=== PATIENT | male | born 1960 | race African-American/Black ===

== ENCOUNTER 2017-01-02 01:36 | Inpatient (IN) ==
[2017-01-02] MEDS ORDERED: Aspirin 81 MG TAB.CHEW PO ONE (01:49)
[2017-01-02 02:49] LABS: Basophils # 0.1 K/mcL (0.0-0.2); Basophils % 0.4 %; Eosinophils % 8.5 %; Hematocrit 40.1 % (37.5-50.1); Hemoglobin 12.5 g/dL (12.9-16.9); Immature Granulocytes % 0.3 % (0-4); Lymphocytes % 8.1 %; Mean Corpuscular HGB Conc 31.2 g/dL (31.6-35.5); Mean Corpuscular Hemoglobin 26.3 pg (28.0-33.3); Mean Corpuscular Volume 84.2 fL (83.0-100.0); Mean Platelet Volume 11.2 fL (9.4-12.4); Monocytes # 0.5 K/mcL (0.0-1.3); Monocytes % 4.5 %; Neutrophils # 9.2 K/mcL (1.6-8.9); Platelet Count 170 K/mcL (140-400); Red Blood Count 4.76 M/mcL (4.19-5.50); Red Cell Distribution Width 15.2 % (11.5-14.5); Segmented Neutrophils % 78.2 %
[2017-01-02 02:55] LABS: Prothrombin Time 10.8 Seconds (9.4-12.1)
--- NOTE | 2017-01-02 02:56 | Emergency Department Note ---
Disposition Clinical Impression: Chest pain Qualifiers: Chest pain type: precordial pain Qualified Code(s): R07.2 - Precordial pain Alcohol withdrawal Qualifiers: Complication of substance-induced condition: uncomplicated Qualified Code(s): F10.230 - Alcohol dependence with withdrawal, uncomplicated Pulmonary edema Qualifiers: Chronicity: acute Qualified Code(s): J81.0 - Acute pulmonary edema Disposition: Admitted As Inpatient Condition: Fair [facility]Primary Care Provider[facility] - Forms: ED Satisfaction Letter Chest Pain HPI - General Chief Complaint: ED Chest Pain Stated Complaint: CP Time Seen by Provider: 01/02/17 01:41 Source: patient Mode of arrival: private vehicle Limitations: no limitations Vital Signs Reviewed: Yes Nursing Notes Reviewed: Yes - History of Present Illness Pt complaint: chest pain Onset (ago): Just ROLL UP [employer] Duration: now resolved Onset: during rest Pain Location: substernal Severity: unable, now resolved Severity scale (1-10): 0 Quality: sharp Pain Radiation: none Improves with: nitroglycerin, medication-other (patient received at the) Worsens with: exertion Context: other (Hx of CAD - 2 stents) Associated symptoms: Denies: nausea, vomiting, diaphoresis, dyspnea, sense of impending doom, syncope, palpitations, fever, cough, leg swelling Treatments prior to arrival chest pain: none - Related Data Home Medications Medication Instructions Recorded Confirmed Albuterol Sulfate [Albuterol 2 puff IH QID PRN 07/08/15 07/08/15 Inhaler] Baclofen [Lioresal] 5 mg PO TID 07/08/15 07/08/15 Clopidogrel [Plavix] 75 mg PO DAILY 07/08/15 07/08/15 Divalproex (24 HR) [Depakote ER 1,500 mg PO HS 07/08/15 07/08/15 (24 HR)] Divalproex (24 HR) [Depakote ER 500 mg PO QA 07/08/15 07/08/15 (24 HR)] Gabapentin [Neurontin] 900 mg PO TID 07/08/15 07/08/15 Hydrophilic Cream [Triad] 170 gm TP DAILY 07/08/15 07/08/15 Insulin Glargine,Hum.rec.anlog 25 unit SQ 07/08/15 07/08/15 [Lantus Solostar] Lurasidone [Latuda] 20 mg PO QAM 07/08/15 07/08/15 Lurasidone [Latuda] 80 mg PO HS 07/08/15 07/08/15 Metoprolol [Lopressor] 50 mg PO BID 07/08/15 07/08/15 Mirtazapine [Remeron] 45 mg PO HS 07/08/15 07/08/15 Sildenafil Citrate [Viagra] 100 mg PO DAILY PRN 07/08/15 07/08/15 Simethicone [Gas-X] 160 mg PO BID PRN 07/08/15 07/08/15 hydrOXYzine HCl [Hydroxyzine HCl] 50 mg PO TID 07/08/15 07/08/15 traMADol [Ultram] 100 mg PO TID PRN 07/08/15 07/08/15 Previous Rx's Medication Instructions Recorded hydrALAZINE [HydrALAZINE] 50 mg PO Q8HR #0 07/09/15 Allergies Allergy/AdvReac Type Severity Reaction Status Date / Time Penicillins Allergy Swelling Verified 01/02/17 01:42 of Lip/Tongue/Throat All systems ED: reviewed and negative except as stated. Constitutional: Denies: fever, chills, weakness Eyes: Denies: eye pain, eye discharge, vision change ENT ED: Denies: ear pain, throat pain, congestion, dysphagia Cardiovascular: Denies: chest pain, palpitations, dyspnea on exertion, orthopnea Respiratory: Denies: cough, dyspnea, wheezes Gastrointestinal: Denies: abdominal pain, nausea, vomiting Genitourinary: Denies: urgency, dysuria, frequency Musculoskeletal: Denies: back pain, neck pain, joint swelling, arthralgia Integumentary: Denies: rash, lesions, nipple discharge Neurological: Denies: weakness, numbness, paresthesias Psychiatric: Denies: anxiety, depression Hematological/Lymphatic: Denies: easy bleeding, easy bruising Chest Pain PMH - Past Medical History Medical history: Reports: COPD, coronary artery disease, diabetes, hypertension , myocardial infarction Surgical history: Reports: other Psychiatric history: Reports: anxiety, depression, PTSD, other - Social History Smoking Status: Current some day smoker Alcohol use: Reports: occasionally, recent Drug use: Reports: marijuana Physical Exam - General Limitations: no limitations General appearance: alert, in no apparent distress - Head Head exam: atraumatic, normocephalic, normal inspection - Eye Eye exam: Present: normal appearance, PERRL, EOMI. Absent: scleral icterus, conjunctival injection, periorbital swelling - ENT ENT exam: normal exam, normal oropharynx, mucous membranes moist - Neck Neck exam: Present: normal inspection, full ROM, trachea midline - Chest Chest inspection: Present: normal inspection, symmetric chest wall rise - Respiratory Respiratory exam: Present: normal lung sounds bilaterally. Absent: respiratory distress, wheezes, stridor - Cardiovascular Cardiovascular exam: Present: regular rate, normal rhythm, normal heart sounds. Absent: bradycardia, tachycardia, irregular rhythm, systolic murmur, diastolic murmur - Abdominal Exam Abdominal exam: Present: soft, Non-Tender. Absent: distention, guarding, mass - Extremities Exam Extremities exam: Present: normal inspection. Absent: pedal edema - Back Exam Back exam: Present: normal inspection, full ROM. Absent: tenderness - Neurological Exam Neurological exam: Present: alert, oriented X3, CN II-XII intact, normal gait - Psychiatric Psychiatric exam: Present: normal affect, normal mood, depressed - Skin Skin exam: Present: warm, dry, intact, normal color Course Course Narrative: Patient was sent here from the [place] for evaluation of chest pain. He was seen here two days ago for medical clearance so that he could be admitted to the [facility] for psychiatric treatment. He had no chest pain at that time. He was in the psychiatric unit at the [place] since then and had no complaints until today when he had a sudden onset of chest pressure, hypertension and shortness of breath. He does have a history of coronary artery disease and alcoholism. He is currently going through withdrawal. He has had no alcohol for two days. He was given Ativan 1 AM while in the psych unit along with one nitroglycerin 0.1 of clonidine and some oxygen and albuterol neb. He felt better and wanted to stay at the [place] psych facility, however, the doctor felt that he should be sent here for further evaluation given his history of coronary artery disease and two previous stents. Upon arrival, patient was taken to bed 15. He has no complaints. He is a and O 3 with normal oxygen saturation. His EKG shows sinus rhythm with no ST elevation or depression. It is unchanged compared to previous. We will check labs and x-ray, then reevaluate. Patient is still pain free. Troponin is normal. BNP is mildly elevated. Chest x-ray shows pulmonary edema. Hospitalist was contacted for admission. I spoke with Dr Conn.. He will accept patient for admission. Vital Signs Temperature 98.1 F 01/02/17 01:46 Pulse Rate 76 01/02/17 01:46 Respiratory Rate 12 01/02/17 01:46 Blood Pressure 168/83 01/02/17 01:46 O2 Sat by Pulse Oximetry 95 01/02/17 01:46 Temperature 98.1 F 01/02/17 01:46 Pulse Rate 78 01/02/17 02:30 Respiratory Rate 18 01/02/17 02:30 Blood Pressure 173/87 01/02/17 02:30 O2 Sat by Pulse Oximetry 99 01/02/17 02:30 Oxygen Delivery Oxygen Delivery Room Air Chest Pain - Medical Records Medical records reviewed: Yes I reviewed the patient's medical records. - Lab Data Lab results reviewed: Yes I reviewed the patient's lab results. Lab results narrative: Laboratory Last Values WBC 11.7 K/mcL (4.3-11.1) H 01/02/17 02:42 RBC 4.76 M/mcL (4.19-5.50) 01/02/17 02:42 Hgb 12.5 g/dL (12.9-16.9) L 01/02/17 02:42 Hct 40.1 % (37.5-50.1) 01/02/17 02:42 MCV 84.2 fL (83.0-100.0) 01/02/17 02:42 MCH 26.3 pg (28.0-33.3) L 01/02/17 02:42 MCHC 31.2 g/dL (31.6-35.5) L 01/02/17 02:42 RDW 15.2 % (11.5-14.5) H 01/02/17 02:42 Plt Count 170 K/mcL (140-400) 01/02/17 02:42 MPV 11.2 fL (9.4-12.4) 01/02/17 02:42 Immature Gran % 0.3 % (0-4) 01/02/17 02:42 Seg Neutrophils % 78.2 % 01/02/17 02:42 Lymphocytes % 8.1 % 01/02/17 02:42 Monocytes % 4.5 % 01/02/17 02:42 Eosinophils % 8.5 % 01/02/17 02:42 Basophils % 0.4 % 01/02/17 02:42 Neutrophils # 9.2 K/mcL (1.6-8.9) H 01/02/17 02:42 Lymphocytes # 1.0 K/mcL (0.6-4.6) 01/02/17 02:42 Monocytes # 0.5 K/mcL (0.0-1.3) 01/02/17 02:42 Eosinophils # 1.0 K/mcL (0.0-0.6) H 01/02/17 02:42 Basophils # 0.1 K/mcL (0.0-0.2) 01/02/17 02:42 PT 10.8 Seconds (9.4-12.1) 01/02/17 02:42 INR 1.0 01/02/17 02:42 APTT 29.6 Seconds (26.0-36.0) 01/02/17 02:42 Sodium 136 mEq/L (136-145) 01/02/17 02:42 Potassium 4.8 mEq/L (3.5-4.5) H D 01/02/17 02:42 Chloride 108 mEq/L (98-109) 01/02/17 02:42 Carbon Dioxide 22 mEq/L (19-29) 01/02/17 02:42 BUN 22 mg/dL (8-26) 01/02/17 02:42 Creatinine 1.41 mg/dL (0.72-1.25) H 01/02/17 02:42 Est GFR ( Amer) > 60 (> 60) 01/02/17 02:42 Est GFR (Non-Af Amer) 52 (> 60) L 01/02/17 02:42 BUN/Creatinine Ratio 16 (6-26) 01/02/17 02:42 Glucose 242 mg/dL (70-99) H 01/02/17 02:42 Calculated Osmolality 293 (280-300) 01/02/17 02:42 Calcium 8.9 mg/dL (8.6-10.8) 01/02/17 02:42 Total Bilirubin < 0.3 mg/dL (0.2-1.2) 01/02/17 02:42 Direct Bilirubin 0.1 mg/dL (0.0-0.5) 01/02/17 02:42 Indirect Bilirubin 0.2 mg/dL (0.0-1.2) 01/02/17 02:42 AST 25 Units/L (5-34) 01/02/17 02:42 ALT 31 Units/L (0-55) 01/02/17 02:42 Alkaline Phosphatase 120 Units/L (38-126) 01/02/17 02:42 Troponin I 0.03 ng/mL (0-0.03) 01/02/17 02:42 B-Natriuretic Peptide 517 pg/mL (0-100) H 01/02/17 02:42 Serum Total Protein 5.4 g/dL (6.0-8.3) L 01/02/17 02:42 Albumin 3.0 g/dL (3.5-5.0) L 01/02/17 02:42 Globulin 2.4 g/dL (2.4-3.5) 01/02/17 02:42 Albumin/Globulin Ratio 1.3 (1.1-2.2) 01/02/17 02:42 Lipase 25 Units/L (8-78) 01/02/17 02:42 - Radiology Data Radiology results reviewed: Yes I reviewed the patient's radiology results. Chest X-Ray 01/02/17 01:49 IMPRESSION: 1. Stable cardiomegaly with findings most consistent with moderate diffuse pulmonary edema. 2. Superimposed more confluent left basilar opacity favored to reflect atelectasis/edema. Superimposed infectious infiltrate could be considered in the correct clinical setting. D/ / Bean Landon MD / Bean Landon MD Interpreting Provider: Bean Landon MD - EKG Data EKG attestation: Yes I reviewed and interpreted this EKG. EKG shows normal: sinus rhythm Rate: normal Rhythm: NSR [place]/QRS: normal When compared to previous EKG there are: no significant changes Interpretation: no acute changes
[2017-01-02 02:58] LABS: Activated Partial Thrombo Time 29.6 Seconds (26.0-36.0)
[2017-01-02 03:03] LABS: BUN/Creatinine Ratio 16 (6-26); Blood Urea Nitrogen 22 mg/dL (8-26); Calcium 8.9 mg/dL (8.6-10.8); Carbon Dioxide 22 mEq/L (19-29); Chloride 108 mEq/L (98-109); Glucose 242 mg/dL (70-99); Osmolality,Calculated 293 (280-300); Potassium 4.8 mEq/L (3.5-4.5); Sodium 136 mEq/L (136-145); eGFR For African Americans > 60 (> 60); eGFR For Non-African Americans 52 (> 60)
[2017-01-02 03:04] LABS: Alanine Aminotransferase 31 Units/L (0-55); Albumin/Globulin Ratio 1.3 (1.1-2.2); Alkaline Phosphatase 120 Units/L (38-126); Aspartate Amino Transferase 25 Units/L (5-34); Bilirubin,Direct 0.1 mg/dL (0.0-0.5); Bilirubin,Indirect 0.2 mg/dL (0.0-1.2); Bilirubin,Total < 0.3 mg/dL (0.2-1.2); Globulin 2.4 g/dL (2.4-3.5); Total Protein 5.4 g/dL (6.0-8.3)
--- NOTE | 2017-01-02 04:09 | Emergency Department Note ---
START Narrative - START START: I have personally performed a face to face evaluation on this patient. I have reviewed and agree with the care plan. History and Exam by me shows: Patient to ED from [place] psych inpatient for chest pain. His pain is resolved by the time he arrives here. History coronary disease. Patient currently therefore alcohol withdrawal. Exam shows an laying in bed in no acute distress. Heart regular. Plan. Cardiac workup. Likely admission. He is pain -free on his arrival here.
[2017-01-02] MEDS ORDERED: Furosemide 40 MG/4 ML VIAL IVP ONE (04:19)
[2017-01-02] MEDS ORDERED: Furosemide 20 MG/2 ML VIAL IVP ONE (04:21)
[2017-01-02] MEDS ORDERED: Naloxone 0.4 MG/ML INJ IVP PRN (06:33)
[2017-01-02] MEDS ORDERED: *HR* HYDROcodone/Acet 5/325 mg TABLET PO PRN (06:33)
[2017-01-02] MEDS ORDERED: Acetaminophen 325 MG TABLET PO PRN (06:33)
--- NOTE | 2017-01-02 06:47 | Internal Med History&Physical ---
Date of Encounter: 01/02/17 Time of Encounter: 06:45 Assessment and Plan (1) Essential hypertension Current visit: Yes Status: Acute Continue oral antihypertensive medications per outpatient regimen. (2) Polysubstance abuse Current visit: No Status: Acute (3) Chest pain Current visit: Yes Status: Acute Patient has a history of CAD, is recurrent pain is concerning for ACS. We will place the patient in observation, monitor on telemetry, trend troponin. Obtain stress test and echocardiogram. Qualifiers: Chest pain type: precordial pain Qualified Code(s): R07.2 - Precordial pain (4) Alcohol withdrawal Current visit: Yes Status: Acute We will start alcohol withdrawal protocol. Qualifiers: Complication of substance-induced condition: uncomplicated Qualified Code(s ): F10.230 - Alcohol dependence with withdrawal, uncomplicated (5) Pulmonary edema Current visit: Yes Status: Acute Could probably secondary to hypertensive urgency Versus diastolic heart failure. BNP is elevated. Will obtain echocardiogram. We will treat with IV Lasix. Qualifiers: Chronicity: acute Qualified Code(s): J81.0 - Acute pulmonary edema Internal Medicine - H&P: HPI Chief complaint: Chest pain Admitted From: Emergency Dept Plans for Post Hospital Care: Transfer Psych Facility History of present illness: Mr. Macedo is a 56 year old male with past medical history significant for hypertension, diabetes and coronary artery disease who was sent from the [place] psychiatric unit for evaluation of chest pain. He developed sudden onset substernal pressure-like 8/10 in intensity chest pain earlier today. He received treatment with Ativan and clonidine and nitroglycerin and improved. He was sent to our emergency department for evaluation. Currently the patient is chest pain-free. A 10 point review of systems was negative. Past Med Surg Social Fam HX - Past Medical History Medical history: COPD, coronary artery disease, diabetes, hypertension, myocardial infarction Psychiatric history: anxiety, depression, PTSD, other - Past Surgical History Surgical History: other - Social History Smoking Status: Current some day smoker Smokeless Tobacco Status: No Alcohol use: occasionally, recent Drug use: marijuana - Family History Mother History Unknown: Yes Living Status: Still Living Hx Family Respiratory Disorders: Yes Hx Family Cancer: Yes Hx Family Endocrine Disorder: Yes Father History Unknown: Yes Living Status: Hx Family Endocrine Disorder: Yes (" of diabetes") Internal Medicine - H&P: Meds Albuterol Sulfate [Albuterol Inhaler] 2 puff IH QID PRN 07/08/15 [History] Baclofen [Lioresal] 5 mg PO TID 07/08/15 [History] Clopidogrel [Plavix] 75 mg PO DAILY 07/08/15 [History] Divalproex (24 HR) [Depakote ER (24 HR)] 1,500 mg PO HS 07/08/15 [History] Divalproex (24 HR) [Depakote ER (24 HR)] 500 mg PO QAM 07/08/15 [History] Gabapentin [Neurontin] 900 mg PO TID 07/08/15 [History] Hydrophilic Cream [Triad] 170 gm TP DAILY 07/08/15 [History] Insulin Glargine,Hum.rec.anlog [Lantus Solostar] 25 unit SQ HS 07/08/15 [History ] Lurasidone [Latuda] 20 mg PO QAM 07/08/15 [History] Lurasidone [Latuda] 80 mg PO HS 07/08/15 [History] Metoprolol [Lopressor] 50 mg PO BID 07/08/15 [History] Mirtazapine [Remeron] 45 mg PO HS 07/08/15 [History] Sildenafil Citrate [Viagra] 100 mg PO DAILY PRN 07/08/15 [History] Simethicone [Gas-X] 160 mg PO BID PRN 07/08/15 [History] hydrOXYzine HCl [Hydroxyzine HCl] 50 mg PO TID 07/08/15 [History] traMADol [Ultram] 100 mg PO TID PRN 07/08/15 [History] hydrALAZINE [HydrALAZINE] 50 mg PO Q8HR #0 07/09/15 [Rx] Allergies Penicillins Allergy (Verified 01/02/17 01:42) Swelling of Lip/Tongue/Throat All Systems PM: A 10-system review of systems was performed and is negative for pertinent findings except as documented above in the HPI. - Constitutional Vitals: Temp Pulse Resp BP Pulse Ox 97.6 F 64 16 162/83 100 01/02/17 05:25 01/02/17 05:25 01/02/17 05:25 01/02/17 05:25 01/02/17 05:25 General appearance: Present: A&O X 3 - Respiratory Respiratory exam: Present: CTAB. Absent: accessory muscle use, rales, rhonchi, wheezes - Cardiovascular Cardiovascular exam: Present: RRR, +S1, +S2. Absent: diastolic murmur, gallop, rubs, systolic murmur - GI/Abdominal GI/Abdominal exam: Present: normal bowel sounds, soft, no peritoneal signs. Absent: distended, tenderness - Extremities Exam Extremities exam: Present: warm, radial pulses palpable and symetrical. Absent : calf tenderness, cyanotic, pedal edema - Neurological Exam Neurological exam: Present: CN II-XII intact, oriented X3, no focal deficits. Absent: pronater drift, facial droop, speech deficit - Skin Skin exam: Present: dry, intact Internal Med - H&P Results - Labs CBC & Chem 7: 01/02/17 02:42 01/02/17 02:42 - EKG Data -: EKG Interpreted by Myself EKG shows normal: sinus rhythm, intervals, ST-T waves (T-wave inversion lateral leads) - EKG Data Prior EKG available for review: yes When compared to previous EKG: there is no significant change
[2017-01-02] MEDS ORDERED: *HR* LORazepam 2 MG/ML VIAL IVP PRN (06:54)
[2017-01-02] MEDS ORDERED: *HR* Dextrose 50 % in Water (Syg) 50 ML SYRINGE IVP PRN (06:55)
[2017-01-02] MEDS ORDERED: D5% in Water 1,000 ML IVC PRN (06:55)
[2017-01-02] MEDS ORDERED: Dextrose Gel 15 GM PO PRN ×2 (06:55)
[2017-01-02] MEDS: Insulin LISPRO 300 UNITS/3 ML VIAL SQ SCH ×4 (08:04→20:11)
[2017-01-02] MEDS ORDERED: Regadenoson 0.4 MG/5 ML SYRINGE IVP ONE (09:17)
--- NOTE | 2017-01-02 12:02 | Nuclear Medicine Stress Report ---
Regadenoson Nuclear Stress Name: Ramez Macedo Date of Study: 01/02/2017 Date: 1960 Ht: 70.0 in Medical Record#: [id number] Age: 56 Wt: 173.0 lb Gender: Male Order #: [id number] Location: [facility] Room: [facility] Supervising Provider: Silver Brown CNP Reading Physician: Felipe Terrell MD, [facility] Ordering Physician: Christal Johnson CNP Primary Care Physician: [facility] Stress Technologist: Xin Campos RRT Encoding Clerk: Gerardo Baron Indications: Shortness of breath Impression: Perfusion imaging was negative for ischemia or infarct. SDS - 0 Pharmacologic ECG was non diagnostic for ischemia. Patient had no chest pain with stress. No arrhythmias noted with stress. Gated EF = 47%, visually EF is normal The LV is not dilated. There is no evidence of TID. History: Hypertension History of Smoking Stress Test Summary: Stress Test Type: Pharmacologic Regadenoson 0.4mg/5ml given IV Baseline Information: Initial Heart Rate: 66 Blood Pressure: 140/80 Stress Information: Test Terminated Due to (primary): As per protocol Maximum Blood Pressure: 128/78 Maximum Heart Rate: 89 Percent Maximum Heart Rate Achieved: 54 Double Product: [id number] METS Reached: 1 Symptoms: No chest symptoms Nuclear Summary: SPECT myocardial perfusion imaging using Tc99m Sestamibi given intravenously was performed at rest and following cardiac stress testing. The resting images were obtained following initial dose of 10.0 mCi. Following stress an additional dose of 32.3 mCi was given at peak exercise or 30 seconds post regadenoson infusion. Medication Given: Time Medication Dose Units Route Findings: Stress Note * Resting ECG demonstrated normal sinus rhythm. * No baseline arrhythmias were noted. * Pharmacologic stress ECG is non diagnostic for ischemia due to failure to reach target heartrate. * No chest pain or arrhythmias during stress. Hemodynamic responses * The patient demonstrated a hypotensive blood pressure response. Study Quality * Study quality is average. Gated EF % * Gated EF = 47%. Left Ventricle * The left ventricle is not dilated. NORMALS * All other wall motion normal. * Normal segmental perfusion in stress. * Normal Segmental Perfusion in rest. Motion * Mildly decreased basal inferior wall thickening. * Mildly decreased basal anterior wall thickening. Updated by Felipe Terrell MD, FACC on 01/02/2017 11:53:05 AM electronically signed on 01/02/2017 11:56:08 AM with status of Final
[2017-01-02] MEDS: Vitamin B Complex/Vit C/Vit E 1 EACH TABLET PO SCH (12:06)
[2017-01-02] MEDS: Folic Acid 1 MG TABLET PO SCH (12:06)
[2017-01-02] MEDS: Furosemide 20 MG TABLET PO SCH (12:06)
[2017-01-02] MEDS: Thiamine (B-1) 100 MG TABLET PO SCH (12:06)
[2017-01-02] MEDS: hydrALAZINE 25 MG TABLET PO SCH ×3 (12:07→23:45)
--- NOTE | 2017-01-02 13:55 | Event Note ---
Date of Encounter: 01/02/17 Time of Encounter: 13:54 56 year old male with past medical history significant for hypertension, diabetes and coronary artery disease s/p PCI, who was sent from the [place] for evaluation of chest pain. He developed sudden onset substernal pressure-like 8/ 10 in intensity chest pain earlier today. He received treatment with Ativan and clonidine and nitroglycerin and improved. he is also a polysubstance abuser his work up has revealed negative stress test negative for perfusion defects but revealing EF 47% (new). ECHO showed no WMA Patient admits to using cocaine On eval, he reports he is contemplating leaving AMA and does not want further eval. Counselled to await Physical exam is unremarkable Continue current management SW consult for [facility] Patient cannot leave AMA , as he came in from a inpatient Psych unit and has to be cleared by [facility] to go back home
[2017-01-02] MEDS ORDERED: Thiamine (B-1) 100 MG, Folic Acid 1 MG, MVI, adult with vitamin K 10 ML in 0.9 % Sodi... IVPB SCH (18:00)
--- NOTE | 2017-01-02 19:03 | Electrocardiograph Report ---
[address] [place] [address] Test Date: 2017-01-02 Pat Name: Ramez Macedo Department: 103 Room: 3B Gender: M Registered Nurses: KAHTY : 1960 Requested By: Adelaida See Order Number: [id number] Reading MD: Felipe Terrell MD Measurements Intervals [place] Rate: 74 P: 42 [place]: 217 QRS: 26 QRSD: 80 T: 153 QT: 385 QTc: 412 Interpretive Statements SINUS RHYTHM WITH FIRST DEGREE AV BLOCK LATERAL ISCHEMIA Electronically Signed On 01-02-2017 19:01:56 EDT by Felipe Terrell MD
[2017-01-02] MEDS: Insulin DETEMIR 100 UNIT/ML X5UNITS SQ SCH (20:10)
[2017-01-03 06:36] LABS: Basophils % 0.3 %; Eosinophils # 0.5 K/mcL (0.0-0.6); Eosinophils % 5.1 %; Hematocrit 38.2 % (37.5-50.1); Hemoglobin 12.8 g/dL (12.9-16.9); Immature Granulocytes % 0.4 % (0-4); Lymphocytes # 1.5 K/mcL (0.6-4.6); Mean Corpuscular HGB Conc 33.5 g/dL (31.6-35.5); Mean Corpuscular Hemoglobin 26.8 pg (28.0-33.3); Mean Corpuscular Volume 79.9 fL (83.0-100.0); Mean Platelet Volume 11.8 fL (9.4-12.4); Monocytes # 0.6 K/mcL (0.0-1.3); Monocytes % 5.9 %; Neutrophils # 7.8 K/mcL (1.6-8.9); Platelet Count 182 K/mcL (140-400); Red Blood Count 4.78 M/mcL (4.19-5.50); Red Cell Distribution Width 15.1 % (11.5-14.5); Segmented Neutrophils % 74.3 %
[2017-01-03 06:45] LABS: BUN/Creatinine Ratio 15 (6-26); Blood Urea Nitrogen 19 mg/dL (8-26); Calcium 8.5 mg/dL (8.6-10.8); Carbon Dioxide 22 mEq/L (19-29); Chloride 108 mEq/L (98-109); Glucose 55 mg/dL (70-99); Magnesium 1.6 mg/dL (1.6-2.6); Osmolality,Calculated 286 (280-300); Potassium 3.9 mEq/L (3.5-4.5); Sodium 138 mEq/L (136-145); eGFR For African Americans > 60 (> 60); eGFR For Non-African Americans 58 (> 60)
[2017-01-03] MEDS ORDERED: Baclofen 10 MG TABLET PO PRN (07:31)
[2017-01-03 08:38] LABS: Amphetamine Screen,Urine Negative ng/mL (Cutoff=1000); Barbiturate Screen,Urine Negative ng/mL (Cutoff=200); Benzodiazepines Screen,Urine Negative ng/mL (Cutoff=200); Cannabinoid Screen,Urine Negative ng/mL (Cutoff = 50); Cocaine Screen,Urine Positive ng/mL (Cutoff= 300); Opiate Screen,Urine Negative ng/mL (Cutoff=300); Phencyclidine Screen,Urine Negative ng/mL (Cutoff=25)
[2017-01-03] MEDS ORDERED: NON-FORMULARY MEDICATION 1 EACH EACH (Gabapentin [Neurontin] 1,200 MG) PO SCH (09:00)
[2017-01-03] MEDS ORDERED: Lisinopril 20 MG TABLET PO SCH (09:00)
[2017-01-03] MEDS: Multivit/Ca/Min/Fe/FA 1 TAB TABLET PO SCH (09:14)
[2017-01-03] MEDS: Furosemide 20 MG TABLET PO SCH (09:14)
[2017-01-03] MEDS: hydrALAZINE 25 MG TABLET PO SCH ×3 (09:14→23:52)
[2017-01-03] MEDS: Thiamine (B-1) 100 MG TABLET PO SCH (09:14)
[2017-01-03] MEDS: Aspirin Enteric Coated 81 MG Tablet PO SCH (09:15)
[2017-01-03] MEDS: amLODIPine 5 MG TABLET PO SCH (09:15)
[2017-01-03] MEDS: Finasteride 5 MG TABLET PO SCH (09:15)
[2017-01-03] MEDS: Folic Acid 1 MG TABLET PO SCH (09:15)
[2017-01-03] MEDS: Vitamin B Complex/Vit C/Vit E 1 EACH TABLET PO SCH (09:15)
[2017-01-03] MEDS: hydroCHLOROthiazide 25 MG TABLET PO SCH (09:15)
[2017-01-03] MEDS: Insulin LISPRO 300 UNITS/3 ML VIAL SQ SCH ×4 (09:19→20:10)
--- NOTE | 2017-01-03 09:24 | Discharge Summary ---
Date of Encounter: 01/03/17 Time of Encounter: 09:24 - Discharge Medications Home Medications: Albuterol Sulfate [Albuterol Inhaler] 2 puff IH QID PRN 07/08/15 [History] Hydrophilic Cream [Triad] 170 gm TP DAILY 07/08/15 [History] Insulin Glargine,Hum.rec.anlog [Lantus Solostar] 34 unit SQ HS 07/08/15 [History ] Lurasidone [Latuda] 80 mg PO HS 07/08/15 [History] Metoprolol [Lopressor] 50 mg PO BID 07/08/15 [History] Sildenafil Citrate [Viagra] 100 mg PO DAILY PRN 07/08/15 [History] hydrALAZINE [HydrALAZINE] 50 mg PO Q8HR #0 07/09/15 [Rx] Amantadine [Symmetrel] 100 mg PO BID 01/02/17 [History] Amlodipine Besylate 10 mg PO DAILY 01/02/17 [History] Aspirin [Lo-Dose Aspirin EC] 81 mg PO DAILY 01/02/17 [History] Baclofen 20 mg PO TID PRN 01/02/17 [History] Finasteride [Proscar] 5 mg PO DAILY 01/02/17 [History] Gabapentin [Neurontin] 1,200 mg PO TID 01/02/17 [History] Lidocaine 4% CRM (LMX) [Lmx 4] 1 appl TP QID 01/02/17 [History] Lisinopril [Zestril] 20 mg PO DAILY 01/02/17 [History] Lurasidone [Latuda] 40 mg PO QAM 01/02/17 [History] Melatonin [Melatin] 9 mg PO HS 01/02/17 [History] Multivit-Min/FA/Lycopen/Lutein [Men 50 Plus Multivitamin Tab] 1 tab PO DAILY [History] Prazosin [Minipress] 3 mg PO HS 01/02/17 [History] Simvastatin [Zocor] 20 mg PO HS 01/02/17 [History] hydrALAZINE [HydrALAZINE] 25 mg PO Q8HR 01/02/17 [History] hydroCHLOROthiazide [Hydrochlorothiazide] 50 mg PO DAILY 01/02/17 [History] Allergies/Adverse Reactions: Allergies Penicillins Allergy (Verified 01/02/17 01:42) Swelling of Lip/Tongue/Throat Procedures/tests Complete & Pending: Procedures Performed prior 72 hours Category Date Time Status NM teena perf SPECT multi [NM] Routine Exams 01/02/17 07:38 Taken EV echocardiogram Routine Y 01/02/17 06:35 Completed SP pharm nuclear stress Routine Y 01/02/17 06:35 Completed Date of admission: 01/02/17 04:46 [facility] care physician: [facility] Consults: 01/02/17 06:54 Consult to [facility] [CONS] Routine Reason for SW Consult: [facility] 01/03/17 07:34 Consult to [facility] [CONS] Routine Reason for SW Consult: [facility] to [facility] - Patient Status Condition: Fair - Discharge Instructions Follow Up With: [facility] [Primary Care Provider[facility] - Hospital course: Mr. Macedo is a 56 year old male - Time Spent with Patient Total time spent providing and/or coordinating discharge services: - Constitutional Vitals: Temp Pulse Resp BP Pulse Ox 98.1 F 73 18 170/83 98 01/03/17 07:25 01/03/17 07:25 01/03/17 07:25 01/03/17 07:25 01/03/17 07:25 General appearance: Present: A&O X 3, pleasant, no acute distress - Head Head exam: Present: atraumatic, normocephalic - Eye Eye exam: Present: PERRL, conjuntiva pink, sclera anicteric Pupils: Present: PERRL - Neck Neck exam general surgery: Present: supple, trachea midline. Absent: lymphadenopathy - Respiratory Respiratory exam: Present: CTAB. Absent: accessory muscle use, rales, rhonchi, wheezes - Cardiovascular Cardiovascular exam: Present: RRR, +S1, +S2. Absent: diastolic murmur, gallop, rubs, systolic murmur - GI/Abdominal GI/Abdominal exam: Present: normal bowel sounds, soft, no peritoneal signs. Absent: distended, tenderness - Extremities Exam Extremities exam: Present: warm, radial pulses palpable and symetrical. Absent : calf tenderness, cyanotic, pedal edema - Neurological Exam Neurological exam: Present: alert, CN II-XII intact, oriented X3, no focal deficits. Absent: pronater drift, facial droop, speech deficit - Skin Skin exam: Present: dry, intact
[2017-01-03] MEDS ORDERED: Lisinopril 20 MG TABLET PO ONE (15:18)
--- NOTE | 2017-01-03 15:22 | Internal Med Progress Note ---
Date of Encounter: 01/03/17 Time of Encounter: 09:00 - Assessment and plan (1) CHF (congestive heart failure) Current Visit: Yes Status: Chronic Assessment and plan: As in Pulmonary edema ECHO shows LVEF 55-60%, diastolic dysfunction, small pericardial effusion, no WMA Stress test shows no perfusion defects and estimates EF to be 47% Continue current management Qualifiers: Congestive heart failure type: diastolic Congestive heart failure chronicity: acute on chronic Qualified Code(s): I50.33 - Acute on chronic diastolic (congestive) heart failure (2) Essential hypertension Current Visit: Yes Status: Chronic Assessment and plan: Uncontrolled Increase Norvasc, Hydralazine, Lsix. Continue HCTZ (3) Pulmonary edema Current Visit: Yes Status: Acute Assessment and plan: Continue lasix, increase to 40mg po daily Continue to monitor I/Os Possibly secondary to cocaine use CXR showed moderate diffuse pulmonary edema Patient is hemodynamically stable Monitor I/O Daily weight checks Monitor Chem Qualifiers: Chronicity: acute Qualified Code(s): J81.0 - Acute pulmonary edema (4) Cocaine abuse Current Visit: Yes Status: Chronic Assessment and plan: Chronic Received ativan and clonidine on arrival for agitation He has been calm since arrival to floors Monitor for withdrawal (5) Depression Current Visit: Yes Status: Chronic Assessment and plan: Continue Psych meds Qualifiers: Depression Type: major depressive disorder Major depression recurrence: recurrent Major depression episode severity: unspecified Qualified Code(s): F33.9 - Major depressive disorder, recurrent, unspecified (6) PTSD (post-traumatic stress disorder) Current Visit: Yes Status: Chronic Assessment and plan: Continue psych meds [facility], or should patient become violent, will request psych eval here He is not homicidal or suicidal at this time - Subjective Interval history: 56 year old male with past medical history significant for hypertension, diabetes and coronary artery disease s/p PCI, [facility]. He developed sudden onset substernal pressure-like 8/ 10 in intensity chest pain earlier today. He received treatment with Ativan and clonidine and nitroglycerin and improved. he is also a polysubstance abuser his work up has revealed negative stress test negative for perfusion defects but revealing EF 47% (new). ECHO showed no WMA His troponin was negative Patient is denying new complains at time of review reports his SOB and chest pain has resolved He was sent to [facility] from [facility] and aim is to return there His BP is uncontrolled this a.m - Constitutional Vitals: Temp Pulse Resp BP Pulse Ox 98.6 F 75 16 181/93 99 01/03/17 11:49 01/03/17 11:49 01/03/17 11:49 01/03/17 11:49 01/03/17 11:49 General appearance: Present: A&O X 3, no acute distress - Head Head exam: Present: atraumatic, normocephalic - Eye Eye exam: Present: PERRL, conjuntiva pink, sclera anicteric Pupils: Present: PERRL - Neck Neck exam general surgery: Present: supple, trachea midline. Absent: lymphadenopathy - Respiratory Respiratory exam: Present: CTAB. Absent: accessory muscle use, rales, rhonchi, wheezes - Cardiovascular Cardiovascular exam: Present: RRR, +S1, +S2. Absent: diastolic murmur, gallop, rubs, systolic murmur - GI/Abdominal GI/Abdominal exam: Present: normal bowel sounds, soft, no peritoneal signs. Absent: distended, tenderness - Extremities Exam Extremities exam: Present: warm, radial pulses palpable and symetrical. Absent : calf tenderness, cyanotic, pedal edema - Neurological Exam Neurological exam: Present: alert, CN II-XII intact, oriented X3, no focal deficits. Absent: pronater drift, facial droop, speech deficit - Skin Skin exam: Present: dry, intact Internal Medicine: Result - Labs CBC & Chem 7: 01/03/17 06:12 01/03/17 06:12 Labs: Short CBC 01/03/17 Range/Units 06:12 WBC 10.5 (4.3-11.1) K/mcL Hgb 12.8 L (12.9-16.9) g/dL Hct 38.2 (37.5-50.1) % Plt Count 182 (140-400) K/mcL Neutrophils # 7.8 (1.6-8.9) K/mcL BMP 01/03/17 06:12 Sodium 138 Potassium 3.9 Chloride 108 Carbon Dioxide 22 BUN 19 Creatinine 1.30 H Glucose 55 L Calcium 8.5 L - ABG Interpretation ABG results: PT/INR, D-dimer PT 10.8 Seconds (9.4-12.1) 01/02/17 02:42 Consult Discharge Plan - Plan [facility]errals: [facility] [Primary Care Provider] -
[2017-01-03] MEDS ORDERED: Furosemide 20 MG TABLET PO SCH (15:24)
[2017-01-03] MEDS ORDERED: Furosemide 20 MG TABLET PO ONE (15:25)
[2017-01-03] MEDS ORDERED: Water for inj. (sterile) 10 ML IV ONE (17:17)
[2017-01-03] MEDS: Insulin DETEMIR 100 UNIT/ML X5UNITS SQ SCH (20:02)
[2017-01-03] MEDS: Gabapentin 300 MG CAPSULE PO SCH (20:03)
[2017-01-03] MEDS: Melatonin 3 MG TABLET PO SCH (20:03)
[2017-01-04 04:45] LABS: BUN/Creatinine Ratio 15 (6-26); Blood Urea Nitrogen 20 mg/dL (8-26); Calcium 9.3 mg/dL (8.6-10.8); Carbon Dioxide 27 mEq/L (19-29); Chloride 106 mEq/L (98-109); Glucose 99 mg/dL (70-99); Osmolality,Calculated 289 (280-300); Potassium 3.9 mEq/L (3.5-4.5); Sodium 138 mEq/L (136-145); eGFR For African Americans > 60 (> 60); eGFR For Non-African Americans 55 (> 60)
[2017-01-04] MEDS: Insulin LISPRO 300 UNITS/3 ML VIAL SQ SCH ×3 (07:54→18:01)
[2017-01-04] MEDS: Multivit/Ca/Min/Fe/FA 1 TAB TABLET PO SCH (08:23)
[2017-01-04] MEDS: Vitamin B Complex/Vit C/Vit E 1 EACH TABLET PO SCH (08:23)
[2017-01-04] MEDS: Gabapentin 300 MG CAPSULE PO SCH ×3 (08:23→20:59)
[2017-01-04] MEDS: hydroCHLOROthiazide 25 MG TABLET PO SCH (08:23)
[2017-01-04] MEDS: hydrALAZINE 25 MG TABLET PO SCH ×2 (08:24→16:22)
[2017-01-04] MEDS: Thiamine (B-1) 100 MG TABLET PO SCH (08:24)
[2017-01-04] MEDS: amLODIPine 5 MG TABLET PO SCH (08:24)
[2017-01-04] MEDS: Finasteride 5 MG TABLET PO SCH (08:24)
[2017-01-04] MEDS: Folic Acid 1 MG TABLET PO SCH (08:25)
[2017-01-04] MEDS: Aspirin Enteric Coated 81 MG Tablet PO SCH (08:25)
[2017-01-04] MEDS ORDERED: Lisinopril 20 MG TABLET PO SCH (09:00)
--- NOTE | 2017-01-04 09:18 | Discharge Summary ---
Date of Encounter: 01/04/17 Time of Encounter: 09:17 - Discharge Diagnosis (1) CHF (congestive heart failure) Priority: Primary Status: Chronic Qualifiers: Congestive heart failure type: diastolic Congestive heart failure chronicity: acute on chronic Qualified Code(s): I50.33 - Acute on chronic diastolic (congestive) heart failure (2) Essential hypertension Priority: Secondary Status: Chronic (3) Pulmonary edema Priority: Primary Status: Acute Qualifiers: Chronicity: acute Qualified Code(s): J81.0 - Acute pulmonary edema (4) Cocaine abuse Priority: Secondary Status: Chronic (5) Depression Priority: Secondary Status: Chronic Qualifiers: Depression Type: major depressive disorder Major depression recurrence: recurrent Major depression episode severity: unspecified Qualified Code(s): F33.9 - Major depressive disorder, recurrent, unspecified (6) PTSD (post-traumatic stress disorder) Priority: Secondary Status: Chronic - Discharge Medications Home Medications: Albuterol Sulfate [Albuterol Inhaler] 2 puff IH QID PRN 07/08/15 [History] Hydrophilic Cream [Triad] 170 gm TP DAILY 07/08/15 [History] Insulin Glargine,Hum.rec.anlog [Lantus Solostar] 34 unit SQ HS 07/08/15 [History ] Lurasidone [Latuda] 80 mg PO HS 07/08/15 [History] Metoprolol [Lopressor] 50 mg PO BID 07/08/15 [History] Sildenafil Citrate [Viagra] 100 mg PO DAILY PRN 07/08/15 [History] hydrALAZINE [HydrALAZINE] 50 mg PO Q8HR #0 07/09/15 [Rx] Amantadine [Symmetrel] 100 mg PO BID 01/02/17 [History] Amlodipine Besylate 10 mg PO DAILY 01/02/17 [History] Aspirin [Lo-Dose Aspirin EC] 81 mg PO DAILY 01/02/17 [History] Baclofen 20 mg PO TID PRN 01/02/17 [History] Finasteride [Proscar] 5 mg PO DAILY 01/02/17 [History] Gabapentin [Neurontin] 1,200 mg PO TID 01/02/17 [History] Lidocaine 4% CRM (LMX) [Lmx 4] 1 appl TP QID 01/02/17 [History] Lisinopril [Zestril] 20 mg PO DAILY 01/02/17 [History] Lurasidone [Latuda] 40 mg PO QAM 01/02/17 [History] Melatonin [Melatin] 9 mg PO HS 01/02/17 [History] Multivit-Min/FA/Lycopen/Lutein [Men 50 Plus Multivitamin Tab] 1 tab PO DAILY [History] Prazosin [Minipress] 3 mg PO HS 01/02/17 [History] Simvastatin [Zocor] 20 mg PO HS 01/02/17 [History] hydrALAZINE [HydrALAZINE] 25 mg PO Q8HR 01/02/17 [History] hydroCHLOROthiazide [Hydrochlorothiazide] 50 mg PO DAILY 01/02/17 [History] Allergies/Adverse Reactions: Allergies Penicillins Allergy (Verified 01/02/17 01:42) Swelling of Lip/Tongue/Throat Procedures/tests Complete & Pending: Procedures Performed prior 72 hours Category Date Time Status NM teena perf SPECT multi [NM] Routine Exams 01/02/17 07:38 Taken EV echocardiogram Routine Y 01/02/17 06:35 Completed SP pharm nuclear stress Routine Y 01/02/17 06:35 Completed Date of admission: 01/02/17 04:46 Primary care physician: [facility] Consults: 01/02/17 06:54 Consult to Salad Chef [CONS] Routine Reason for SW Consult: Return to [facility] psych 01/03/17 07:34 Consult to Salad Chef [CONS] Routine Reason for Consult: return to NH in-patient psych 01/03/17 16:43 Consult to Psychiatry [CONS] Routine Consulting Provider: Ayaan Phelan Reason for Consult: Review requested for return to NH in-patient psychiatry unit. Thank you. Call Completed: Yes Discharging clinician: Dangelo Gregg Anticipated date of discharge: 01/04/17 - Patient Status Disposition: Transfer Psychiatric Hosp Condition: Fair Functional capacity at discharge: independent ambulation Overall status at discharge: patient is back to baseline - Discharge Instructions Follow Up With: [facility] [Primary Care Provider] - - Diet and Activity Activity: resume usual activities as tolerated Diet: low fat, low cholesterol, low salt diet Interval History: See below Hospital course: Mr. Macedo is a 56 year old male , resident of [facility] psych in-patient who was referred to [facility] due to complains of chest pain and SOB Patient is a known CHFpEF, CAD, HTN, PTSD, Depression, polysubstance abuse His chest pain and SOB resolved prior to arrival to [facility] His work up revealed mild leukocytosis which promptly resolved without treatment , he was afebrile and hemodynamically stable on arrival. Chem showed renal function at baseline, troponin was negative, BNP was elevated to 517. ECHO shows LVEF 55-60%, diastolic dysfunction, small pericardial effusion, no WMA Stress test shows no perfusion defects and estimates EF to be 47% CXR showed moderate diffuse pulmonary edema Patient is hemodynamically stable He was admitted and managed for acute on chronic CHF exacerbation with pulmonary edema. he did not require supplemental O2 Patient was agitated initially and required doses of Ativan and Clonidine. His urine toxicology showed use of cocaine He is now euvolemic, his lasix and lisinopril has been increased to 40mg po daily, his blood pressure medications were adjusted to achieve control. This patient is seen at bedside this morning, denies new complains and is medically cleared for discharge At this time,the NH has requested the patient be evaluated by in-patient psych at this facility, Psychiatrist evaluated noted and recommends patient to [facility] He will be discharged back to [facility] psych Plan of care discussed, verbalized understanding Time spent discussing smoking cessation with patient: 3 to 10 minutes - Time Spent with Patient Total time spent providing and/or coordinating discharge services: Greater than 30 minutes (45 minutes spent on preparing discharge, consultations , patient encounter, chart review, documentation) - Constitutional Vitals: Temp Pulse Resp BP Pulse Ox 98.3 F 77 16 165/81 98 01/04/17 07:11 01/04/17 08:20 01/04/17 07:11 01/04/17 08:20 01/04/17 07:11 General appearance: Present: A&O X 3, pleasant, no acute distress - Head Head exam: Present: atraumatic, normocephalic - Eye Eye exam: Present: PERRL, conjuntiva pink, sclera anicteric Pupils: Present: PERRL - Neck Neck exam general surgery: Present: supple, trachea midline. Absent: lymphadenopathy - Respiratory Respiratory exam: Present: CTAB. Absent: accessory muscle use, rales, rhonchi, wheezes - Cardiovascular Cardiovascular exam: Present: RRR, +S1, +S2. Absent: diastolic murmur, gallop, rubs, systolic murmur - GI/Abdominal GI/Abdominal exam: Present: normal bowel sounds, soft, no peritoneal signs. Absent: distended, tenderness - Extremities Exam Extremities exam: Present: warm, radial pulses palpable and symetrical. Absent : calf tenderness, cyanotic, pedal edema - Neurological Exam Neurological exam: Present: alert, CN II-XII intact, oriented X3, no focal deficits. Absent: pronater drift, facial droop, speech deficit - Skin Skin exam: Present: dry, intact
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
[2017-01-04 19:39] VITALS: BP 180/100
[2017-01-04] MEDS: Melatonin 3 MG TABLET PO SCH (20:58)
[2017-01-04] MEDS ORDERED: cloNIDine HCl 0.1 MG TABLET PO SCH (21:00)
[2017-01-04] MEDS: Insulin DETEMIR 100 UNIT/ML X5UNITS SQ SCH (21:00)
== END 2017-01-05 00:35 | DRG 292 ==
LOC: EMEROO 01:36 → SUATTDRO 04:46 → 3BNU 04:46
PROVIDERS: ADMIT Internal Medicine; ATTEND Internal Medicine